=== PATIENT | male | born 1955 | race Caucasian/White ===

== ENCOUNTER 2016-06-19 09:01 | Emergency (ER) | payer MEDICARE ==
[2016-06-19 10:13] LABS: Eosinophils % (Auto) 2.6 % (0.0-4.3); Hematocrit 42.6 % (35.5-45.6); Hemoglobin 13.7 gm/dl (11.8-15.2); Mean Corpuscular HGB Conc 32 % (32-34); Mean Corpuscular Hemoglobin 27 pg (28-32); Mean Corpuscular Volume 85 fl (84-94); Platelet Count 213 K/mm3 (140-440); Red Cell Distribution Width 13.5 % (13.2-15.2); White Blood Count 4.4 K/mm3 (4.5-11.0)
[2016-06-19 10:35] LABS: Anion Gap 17 mmol/L; Blood Urea Nitrogen 14 mg/dL (9-20); Calcium 8.7 mg/dL (8.4-10.2); Carbon Dioxide 25 mmol/L (22-30); Chloride 100.2 mmol/L (98-107); Glucose 242 mg/dL (75-100); Potassium 4.4 mmol/L (3.6-5.0); Sodium 138 mmol/L (137-145)
--- NOTE | 2016-06-20 02:29 | Emergency Department Report ---
ED Chest Pain HPI - General Chief Complaint: Chest Pain Stated Complaint: CHEST PAIN Time Seen by Provider: 06/19/16 21:40 Source: patient Mode of arrival: Ambulatory Limitations: No Limitations - History of Present Illness Initial Comments: This is a 61-year-old -[place] male who presents to the emergency department with complaint of a 4 day history of intermittent chest pain to both sides of the chest. He denies any shortness of breath, nausea, vomiting, fever or diaphoresis. He has not taken anything for symptoms prior to presentation. He has a past medical history of hypertension, non-insulin depended diabetes, asthma, glaucoma. No history of OK, CVA, PE/DVT. He has not taken anything for symptoms prior to presentation. No recent travel or sick contacts at home. His primary care doctor is Dr. Luke. Severity scale (0 -10): 8 - Related Data Home Medications Medication Instructions Recorded Confirmed Last Taken Enalapril Maleate [Vasotec] 20 mg PO BID 06/20/16 06/20/16 Unknown Hydrochlorothiazide [Hctz] 12.5 mg PO QDAY 06/20/16 06/20/16 Unknown Ibuprofen [Advil 100 MG tab] 200 mg PO Q6H PRN 06/20/16 06/20/16 Unknown Lovastatin [Altoprev] 20 mg PO QPM 06/20/16 06/20/16 Unknown Metformin HCl [Glucophage] 1,000 mg PO BID 06/20/16 06/20/16 Unknown Allergies Allergy/AdvReac Type Severity Reaction Status Date / Time No Known Allergies Allergy Verified 06/19/16 09:22 DAPHNE score - Daphne Score Age > 65: (0) No Aspirin use within the Past 7 Days: (0) No 3 or more CAD Risk Factors: (0) No 2 or more Angina events in past 24 hrs: (1) Yes Known CAD with more than 50% Stenosis: (0) No Elevated Cardiac Markers: (0) No ST Deviation Greater than 0.5mm: (0) No DAPHNE Score: 1 ED Review of Systems ROS: Stated complaint: CHEST PAIN Other details as noted in HPI Comment: All other systems reviewed and negative Constitutional: denies: chills, fever Eyes: denies: eye pain, eye discharge, vision change ENT: denies: ear pain, throat pain Respiratory: denies: cough, shortness of breath, wheezing Cardiovascular: chest pain. denies: palpitations Gastrointestinal: denies: abdominal pain, nausea, diarrhea Genitourinary: denies: urgency, dysuria Musculoskeletal: denies: back pain, joint swelling, arthralgia Skin: denies: rash, lesions Neurological: denies: headache, weakness, paresthesias ED Past Medical Hx - Past Medical History Previous Medical History?: Yes Hx Hypertension: Yes Hx Diabetes: Yes Hx Asthma: Yes Additional medical history: glaucoma - Surgical History Past Surgical History?: Yes Additional Surgical History: eyes - Social History Smoking Status: Never Smoker Substance Use Type: None - Medications Home Medications: Home Medications Medication Instructions Recorded Confirmed Last Taken Type Enalapril Maleate [Vasotec] 20 mg PO BID 06/20/16 06/20/16 Unknown History Hydrochlorothiazide [Hctz] 12.5 mg PO QDAY 06/20/16 06/20/16 Unknown History Ibuprofen [Advil 100 MG tab] 200 mg PO Q6H PRN 06/20/16 06/20/16 Unknown History Lovastatin [Altoprev] 20 mg PO QPM 06/20/16 06/20/16 Unknown History Metformin HCl [Glucophage] 1,000 mg PO BID 06/20/16 06/20/16 Unknown History ED Physical Exam - General Limitations: No Limitations - Other Other exam information: GENERAL: The patient is well-developed well-nourished. HEENT: Normocephalic. Atraumatic. Extraocular motions are intact. Patient has moist mucous membranes. Pupils equal reactive to light bilaterally. NECK: Supple. Trachea is midline. CHEST/LUNGS: Clear to auscultation. There is no respiratory distress noted. Chest pain is reproducible to palpation of the chest wall. HEART/CARDIOVASCULAR: Regular. There is no tachycardia. There is no gallop rub or murmur. ABDOMEN: Abdomen is soft, nontender. Patient has normal bowel sounds. There is no abdominal distention. SKIN: There is no rash. There is no edema. There is no diaphoresis. NEURO: The patient is awake, alert, and oriented. The patient is cooperative. The patient has no focal neurologic deficits. The patient has normal speech. MUSCULOSKELETAL: There is no tenderness or deformity. There is no limitation range of motion. There is no evidence of acute injury. ED Course Vital Signs 06/19/16 06/20/1617 09:18 01:20 05:05 Temperature 98.8 F 97.9 F Pulse Rate 77 65 85 Respiratory 20 20 Rate Blood Pressure 182/99 170/98 Blood Pressure 188/94 [Left] O2 Sat by Pulse 100 97 Oximetry 06/20/16 05:56 Temperature Pulse Rate 69 Respiratory 16 Rate Blood Pressure Blood Pressure 161/91 [Left] O2 Sat by Pulse 97 Oximetry ED Medical Decision Making - Lab Data Result diagrams: 06/19/16 10:01 06/19/16 10:01 - EKG Data -: EKG Interpreted by Me EKG shows normal: sinus rhythm, axis, intervals, QRS complexes (LVH), ST-T waves (T wave inversion to inferior leads) Rate: normal - EKG Data When compared to previous EKG there are: previous EKG unavailable Interpretation: other (T wave inversion to inferior leads) - Radiology Data Radiology results: image reviewed interpreted by me: Chest x-ray did not show any acute process. Heart is normal shape and size. No effusions. No pneumothorax. No signs of pneumonia seen. - Medical Decision Making 61-year-old male presents with complaint of bilateral chest pain going on intermittent relief the past 4 days. Physical exam and is reproducible to palpation. He has normal sounding heart and lungs. EKG does not show any signs of ST elevation OK or cardiac ischemia. Patient's workup/labs include negative troponins 3 and a negative d-dimer. Patient was given a shot of Toradol and is feeling improved. He has a DAPHNE score of 1. Patient's vital signs were stable throughout his ED course. However he did have some hypertension that required a dose of Catapres, but it came down to a more reasonable level. The patient will be given a referral for cardiology and encouraged to follow-up with his primary care doctor. He will return to the ER with any worsening of his symptoms or any acute distress. - Differential Diagnosis OK, PE, costochondritis, pneumonia, muscle spasm Critical Care Time: No Critical care attestation.: If time is entered above; I have spent that time in minutes in the direct care of this critically ill patient, excluding procedure time. ED Disposition Clinical Impression: Costochondritis Hypertension Qualifiers: Hypertension type: essential hypertension Qualified Code(s): I10 - Essential ( primary) hypertension Chest pain Qualifiers: Chest pain type: unspecified Qualified Code(s): R07.9 - Chest pain, unspecified Disposition: OP ADMITTED IP TO THIS HOSP Is pt being admited?: Yes Condition: Stable Instructions: Hypertension (ED), Chest Pain (ED), Costochondritis (ED) Additional Instructions: Please follow-up with your primary care doctor in the next few days. I have also given you a referral for a local smocker, Dr. Shanon Belle, to follow-up regarding your chest pain and for a possible outpatient stress test. Return to the emergency department with any worsening of your symptoms, intractable chest pain, respiratory distress, or any acute distress. Referrals: PRIMARY CARE, [Primary Care Provider] - 3-5 Days SHANON BELLE MD [Staff Physician] - 3-5 Days Time of Disposition: 06:20
[2016-06-20] MEDS ORDERED: TORADOL IM ONE (03:09)
[2016-06-20] MEDS ORDERED: CATAPRES PO ONE (04:41)
[2016-06-20 07:04] VITALS: BP 157/88
--- NOTE | 2016-06-20 08:21 | XRay Report ---
AP chest x-ray. Findings: The heart is mildly enlarged with normal pulmonary vascularity. The lungs are clear. There is no pleural fluid. Impression: Mild Cardiomegaly with no acute findings.
== END 2016-06-20 06:40 | disposition admitted as inpatient to this hospital (09) ==
LOC: ED 09:01
DX: M94.0 Chondrocostal junction syndrome [Tietze] (principal); I10 Essential (primary) hypertension; E11.9 Type 2 diabetes mellitus without complications; J45.909 Unspecified asthma, uncomplicated
CPT/HCPCS: 36415; 71010; 80048; 84484; 85025; 85379; 93005; 93010; 96372; 99285; J1885

== ENCOUNTER 2021-03-17 11:19 | Observation (INO) | payer MEDICARE ==
--- NOTE | 2021-03-17 11:34 | Emergency Department Report ---
ED Chest Pain HPI - General Chief Complaint: Chest Pain Stated Complaint: chest pain Time Seen by Provider: 03/17/21 11:31 - History of Present Illness Initial Comments: Patient is a 65-year-old male who presents with chest pain and abnormal smell. He states that this is been going on for last few days it has been going on since Sunday his chest pain is a 6 out of 10 located in the left side of his chest he states nothing makes it better nothing makes it worse. He states that he has been feeling weak and fatigued. He is concerned about the smell and the chest pain. He states that things do not taste different and he is got his Covid vaccines. - Related Data Home Medications Medication Instructions Recorded Confirmed Last Taken Enalapril Maleate [Vasotec] 20 mg PO BID 06/20/16 06/20/16 Unknown Ibuprofen [Advil 100 MG tab] 200 mg PO Q6H PRN 06/20/16 06/20/16 Unknown Lovastatin [Altoprev] 20 mg PO QPM 06/20/16 06/20/16 Unknown Metformin HCl [Glucophage] 1,000 mg PO BID 06/20/16 06/20/16 Unknown hydroCHLOROthiazide [Hctz] 12.5 mg PO QDAY 06/20/16 06/20/16 Unknown Allergies Allergy/AdvReac Type Severity Reaction Status Date / Time No Known Allergies Allergy Verified 06/19/16 09:22 Heart Score - HEART Score History: Moderately suspicious EKG: Normal Age: 45-65 Risk factors: > 3 risk factors or hx of atherosclerotic disease Troponin: < normal limit HEART Score: 4 - EKG Read Time Time EKG Completed: 11:51 EKG Read Time: 11:53 ED Review of Systems ROS: Stated complaint: chest pain Other details as noted in HPI Constitutional: denies: chills, fever Eyes: denies: eye pain, eye discharge, vision change ENT: denies: ear pain, throat pain Respiratory: denies: cough, shortness of breath, wheezing Cardiovascular: chest pain. denies: palpitations Endocrine: no symptoms reported Gastrointestinal: denies: abdominal pain, nausea, diarrhea Genitourinary: denies: urgency, dysuria Musculoskeletal: denies: back pain, joint swelling, arthralgia Skin: denies: rash, lesions Neurological: denies: headache, weakness, paresthesias Psychiatric: denies: anxiety, depression Hematological/Lymphatic: denies: easy bleeding, easy bruising ED Past Medical Hx - Past Medical History Hx Hypertension: Yes Hx Diabetes: Yes Hx Asthma: Yes Additional medical history: glaucoma - Surgical History Additional Surgical History: eyes - Social History Smoking Status: Never Smoker Substance Use Type: None - Medications Home Medications: Home Medications Medication Instructions Recorded Confirmed Last Taken Type Enalapril Maleate [Vasotec] 20 mg PO BID 06/20/16 06/20/16 Unknown History Ibuprofen [Advil 100 MG tab] 200 mg PO Q6H PRN 06/20/16 06/20/16 Unknown History Lovastatin [Altoprev] 20 mg PO QPM 06/20/16 06/20/16 Unknown History Metformin HCl [Glucophage] 1,000 mg PO BID 06/20/16 06/20/16 Unknown History hydroCHLOROthiazide [Hctz] 12.5 mg PO QDAY 06/20/16 06/20/16 Unknown History ED Physical Exam - General General appearance: alert, in no apparent distress - Head Head exam: Present: atraumatic, normocephalic - Eye Eye exam: Present: normal appearance - ENT ENT exam: Present: mucous membranes moist - Neck Neck exam: Present: normal inspection - Respiratory Respiratory exam: Present: normal lung sounds bilaterally. Absent: respiratory distress - Cardiovascular Cardiovascular Exam: Present: regular rate, normal rhythm. Absent: systolic murmur, diastolic murmur, rubs, gallop - GI/Abdominal GI/Abdominal exam: Present: soft, normal bowel sounds - Rectal Rectal exam: Present: deferred - Extremities Exam Extremities exam: Present: normal inspection - Back Exam Back exam: Present: normal inspection - Neurological Exam Neurological exam: Present: alert, oriented X3 - Psychiatric Psychiatric exam: Present: normal affect, normal mood - Skin Skin exam: Present: warm, dry, intact, normal color. Absent: rash ED Course Vital Signs 03/17/21 03/17/21 03/17/21 11:28 11:31 11:45 Pulse Rate 71 73 Respiratory 16 20 Rate Blood Pressure 183/128 183/128 O2 Sat by Pulse 100 99 100 Oximetry 03/17/21 03/17/21 03/17/21 12:00 12:06 12:15 Pulse Rate 68 68 Respiratory 20 20 Rate Blood Pressure 139/75 139/75 O2 Sat by Pulse 99 100 99 Oximetry 03/17/21 03/17/21 03/17/21 12:30 12:45 13:01 Pulse Rate 67 66 Respiratory 17 17 Rate Blood Pressure 118/70 118/70 118/70 O2 Sat by Pulse 98 99 99 Oximetry 03/17/21 13:15 Pulse Rate 62 Respiratory 19 Rate Blood Pressure 118/70 O2 Sat by Pulse 99 Oximetry - Reevaluation(s) Reevaluation #1: 03/17/21 13:44 Pt's chest pain is better but he still is concerned about his sense of smell. DAPHNE score - Daphne Score Age > 65: (0) No Aspirin use within the Past 7 Days: (0) No 3 or more CAD Risk Factors: (0) No 2 or more Angina events in past 24 hrs: (1) Yes Known CAD with more than 50% Stenosis: (0) No Elevated Cardiac Markers: (0) No ST Deviation Greater than 0.5mm: (0) No DAPHNE Score: 1 ED Medical Decision Making - Lab Data Result diagrams: 03/17/21 11:48 03/17/21 11:48 Lab Results 03/17/21 03/17/21 Range/Units 11:48 11:48 WBC 5.3 (4.5-11.0) K/mm3 RBC 4.76 (3.65-5.03) M/mm3 Hgb 13.2 (11.8-15.2) gm/dl Hct 42.3 (35.5-45.6) % MCV 89 (84-94) fl MCH 28 (28-32) pg MCHC 31 L (32-34) % RDW 14.0 (13.2-15.2) % Plt Count 222 (140-440) K/mm3 Lymph % (Auto) 25.3 (13.4-35.0) % [place] % (Auto) 7.1 (0.0-7.3) % Eos % (Auto) 1.0 (0.0-4.3) % Baso % (Auto) 0.4 (0.0-1.8) % Lymph # (Auto) 1.3 (1.2-5.4) K/mm3 [place] # (Auto) 0.4 (0.0-0.8) K/mm3 Eos # (Auto) 0.1 (0.0-0.4) K/mm3 Baso # (Auto) 0.0 (0.0-0.1) K/mm3 Seg Neutrophils % 66.2 (40.0-70.0) % Seg Neutrophils # 3.5 (1.8-7.7) K/mm3 Sodium 142 (137-145) mmol/L Potassium 3.7 (3.6-5.0) mmol/L Chloride 108.8 H (98-107) mmol/L Carbon Dioxide 20 L (22-30) mmol/L Anion Gap 17 mmol/L BUN 12 (9-20) mg/dL Creatinine 0.9 (0.8-1.3) mg/dL Estimated GFR > 60 ml/min BUN/Creatinine Ratio 13 % Glucose 163 H (75-100) mg/dL Calcium 8.9 (8.4-10.2) mg/dL Total Bilirubin 0.50 (0.1-1.2) mg/dL AST 14 (5-40) units/L ALT 11 (7-56) units/L Alkaline Phosphatase 64 (35-129) units/L Troponin T < 0.010 (0.00-0.029) ng/mL Total Protein 7.6 (6.3-8.2) g/dL Albumin 4.2 (3.9-5) g/dL Albumin/Globulin Ratio 1.2 % - EKG Data -: EKG Interpreted by Me - EKG Data 03/17/21 13:40 EKG time 11:55 rate 67 atrial sensed ventricular paced rhythm. - Radiology Data Radiology results: report reviewed, image reviewed cxr: no acute cardiopulmonary process - Medical Decision Making Cdx:NSTEMI Ddx: COVID, Unstable angina I will get cbc, bmp, troponin and ekg Critical care attestation.: If time is entered above; I have spent that time in minutes in the direct care of this critically ill patient, excluding procedure time. ED Disposition Clinical Impression: Chest pain Qualifiers: Chest pain type: unspecified Qualified Code(s): R07.9 - Chest pain, unspecified Disposition: 09 ADMITTED INPATIENT Is pt being admited?: Yes Does the pt Need Aspirin: No Condition: Stable Instructions: Nonspecific Chest Pain, Adult
[2021-03-17] MEDS ORDERED: MORPHINE 4 MG/1 ML INJ IV ONE (11:35)
[2021-03-17] MEDS ORDERED: ASPIRIN 81 MG TAB CHEW PO ONE (11:36)
[2021-03-17] MEDS ORDERED: NITROGLYCERIN 2% OINT 1 GM TP ONE (11:46)
[2021-03-17 13:06] LABS: Basophils % (Auto) 0.4 % (0.0-1.8); Eosinophils # (Auto) 0.1 K/mm3 (0.0-0.4); Hematocrit 42.3 % (35.5-45.6); Hemoglobin 13.2 gm/dl (11.8-15.2); Lymphocytes # (Auto) 1.3 K/mm3 (1.2-5.4); Lymphocytes % (Auto) 25.3 % (13.4-35.0); Mean Corpuscular HGB Conc 31 % (32-34); Mean Corpuscular Volume 89 fl (84-94); Monocytes # (Auto) 0.4 K/mm3 (0.0-0.8); Monocytes % (Auto) 7.1 % (0.0-7.3); Platelet Count 222 K/mm3 (140-440); Red Blood Count 4.76 M/mm3 (3.65-5.03)
--- NOTE | 2021-03-17 13:11 | XRay Report ---
CHEST 2 VIEWS INDICATION: chest pain. COMPARISON: 06/20/2016 FINDINGS: SUPPORT DEVICES: Cardiac device placement with leads projecting over the right atrium, right ventricl e, and coronary sinus. HEART: Within normal limits. LUNGS/PLEURA: No acute air space or interstitial disease. No pneumothorax. ADDITIONAL FINDINGS: None. IMPRESSION: 1. Satisfactory device placement with no complication. Signer Name: Rudi Mosher MD Signed: 03/17/2021 1:06 PM Workstation Name: [id number]
[2021-03-17 13:16] LABS: Alanine Aminotransferase 11 units/L (7-56); Albumin 4.2 g/dL (3.9-5); BUN/Creatinine Ratio 13; Blood Urea Nitrogen 12 mg/dL (9-20); Calcium 8.9 mg/dL (8.4-10.2); Hemolysis Index 11
--- NOTE | 2021-03-17 18:57 | History and Physical Report ---
History of Present Illness Date of examination: 03/17/21 Date of admission: 03/17/21 13:45 Chief complaint: Chest pain for 1 week. History of present illness: 65-year-old male with history of hypertension, type 2 diabetes and asthma comes in for left-sided chest pain of 1 week duration. Chest pain is intermittent in nature. Left precordial and retrosternal. No radiation. No diaphoresis. No nausea no vomiting. Chest pain is about 6 on a scale of 1-10. No exacerbating or precipitating factors. No shortness of breath. Patient also has altered smell and but no loss of taste. Patient got his Covid vaccination. Patient states he is feeling weak and fatigued. Patient virus Covid vaccination. Heart Score - HEART Score History: Moderately suspicious EKG: Normal Age: 45-65 Risk factors: > 3 risk factors or hx of atherosclerotic disease Troponin: < normal limit HEART Score: 4 - Past Medical History --Hypertension: Yes --Diabetes: Yes --Asthma: Yes --Additional medical history: glaucoma --Pacemaker - Surgical History Additional Surgical History: eyes - Social History --Smoking Status: Never Smoker --Substance Use Type: None - Medications Home Medications: Home Medications Medication Instructions Recorded Confirmed Last Taken Type Enalapril Maleate [Vasotec] 20 mg PO BID 06/20/16 06/20/16 Unknown History Ibuprofen [Advil 100 MG tab] 200 mg PO Q6H PRN 06/20/16 06/20/16 Unknown History Lovastatin [Altoprev] 20 mg PO QPM 06/20/16 06/20/16 Unknown History Metformin HCl [Glucophage] 1,000 mg PO BID 06/20/16 06/20/16 Unknown History hydroCHLOROthiazide [Hctz] 12.5 mg PO QDAY 06/20/16 06/20/16 Unknown History Review of Systems ROS: Stated complaint: chest pain Other details as noted in HPI Constitutional: denies: chills, fever Eyes: denies: eye pain, eye discharge, vision change ENT: denies: ear pain, throat pain Respiratory: denies: cough, shortness of breath, wheezing Cardiovascular: chest pain. denies: palpitations Endocrine: no symptoms reported Gastrointestinal: denies: abdominal pain, nausea, diarrhea Genitourinary: denies: urgency, dysuria Musculoskeletal: denies: back pain, joint swelling, arthralgia Skin: denies: rash, lesions Neurological: denies: headache, weakness, paresthesias Psychiatric: denies: anxiety, depression Hematological/Lymphatic: denies: easy bleeding, easy bruising Medications and Allergies Allergies Allergy/AdvReac Type Severity Reaction Status Date / Time No Known Allergies Allergy Verified 06/19/16 09:22 Home Medications Medication Instructions Recorded Confirmed Last Taken Type Enalapril Maleate [Vasotec] 20 mg PO BID 06/20/16 06/20/16 Unknown History Ibuprofen [Advil 100 MG tab] 200 mg PO Q6H PRN 06/20/16 06/20/16 Unknown History Lovastatin [Altoprev] 20 mg PO QPM 06/20/16 06/20/16 Unknown History Metformin HCl [Glucophage] 1,000 mg PO BID 06/20/16 06/20/16 Unknown History hydroCHLOROthiazide [Hctz] 12.5 mg PO QDAY 06/20/16 06/20/16 Unknown History Exam - Constitutional Vitals: Temp Pulse Resp BP Pulse Ox 98.6 F 63 22 119/70 99 03/17/21 18:48 03/17/21 18:48 03/17/21 18:48 03/17/21 18:48 03/17/21 18:48 General appearance: Present: no acute distress, well-nourished - EENT Eyes: Present: PERRL ENT: hearing intact, clear oral mucosa - Neck Neck: Present: supple, normal ROM - Respiratory Respiratory effort: normal Respiratory: bilateral: CTA - Cardiovascular Heart rate: 78 Rhythm: regular Heart Sounds: Present: S1 & S2. Absent: rub, click - Extremities Extremities: no ischemia, pulses intact, pulses symmetrical, No edema Peripheral Pulses: within normal limits - Abdominal General gastrointestinal: Present: soft, non-tender, non-distended, normal bowel sounds Male genitourinary: Present: normal - Rectal Rectal Exam: deferred - Integumentary Integumentary: Present: clear, warm, dry - Musculoskeletal Musculoskeletal: gait normal, strength equal bilaterally - Psychiatric Psychiatric: appropriate mood/affect, intact judgment & insight - Neurologic Neurologic: CNII-XII intact, moves all extremities - Allied Health Allied health notes reviewed: nursing HEART Score - HEART Score EKG: Normal Age: 45-65 Risk factors: > 3 risk factors or hx of atherosclerotic disease Troponin: Troponin T < 0.010 ng/mL (0.00-0.029) 03/17/21 11:48 Troponin: < normal limit Results - Labs CBC & Chem 7: 03/18/21 03:23 03/18/21 03:23 Labs: Laboratory Last Values WBC 5.3 K/mm3 (4.5-11.0) 03/17/21 11:48 RBC 4.76 M/mm3 (3.65-5.03) 03/17/21 11:48 Hgb 13.2 gm/dl (11.8-15.2) 03/17/21 11:48 Hct 42.3 % (35.5-45.6) 03/17/21 11:48 MCV 89 fl (84-94) 03/17/21 11:48 MCH 28 pg (28-32) 03/17/21 11:48 MCHC 31 % (32-34) L 03/17/21 11:48 RDW 14.0 % (13.2-15.2) 03/17/21 11:48 Plt Count 222 K/mm3 (140-440) 03/17/21 11:48 Lymph % (Auto) 25.3 % (13.4-35.0) 03/17/21 11:48 [place] % (Auto) 7.1 % (0.0-7.3) 03/17/21 11:48 Eos % (Auto) 1.0 % (0.0-4.3) 03/17/21 11:48 Baso % (Auto) 0.4 % (0.0-1.8) 03/17/21 11:48 Lymph # (Auto) 1.3 K/mm3 (1.2-5.4) 03/17/21 11:48 [place] # (Auto) 0.4 K/mm3 (0.0-0.8) 03/17/21 11:48 Eos # (Auto) 0.1 K/mm3 (0.0-0.4) 03/17/21 11:48 Baso # (Auto) 0.0 K/mm3 (0.0-0.1) 03/17/21 11:48 Seg Neutrophils % 66.2 % (40.0-70.0) 03/17/21 11:48 Seg Neutrophils # 3.5 K/mm3 (1.8-7.7) 03/17/21 11:48 Sodium 142 mmol/L (137-145) 03/17/21 11:48 Potassium 3.7 mmol/L (3.6-5.0) 03/17/21 11:48 Chloride 108.8 mmol/L (98-107) H 03/17/21 11:48 Carbon Dioxide 20 mmol/L (22-30) L 03/17/21 11:48 Anion Gap 17 mmol/L 03/17/21 11:48 BUN 12 mg/dL (9-20) 03/17/21 11:48 Creatinine 0.9 mg/dL (0.8-1.3) 03/17/21 11:48 Estimated GFR > 60 ml/min 03/17/21 11:48 BUN/Creatinine Ratio 13 % 03/17/21 11:48 Glucose 163 mg/dL (75-100) H 03/17/21 11:48 POC Glucose 91 mg/dL (70-105) 03/17/21 18:28 Calcium 8.9 mg/dL (8.4-10.2) 03/17/21 11:48 Total Bilirubin 0.50 mg/dL (0.1-1.2) 03/17/21 11:48 AST 14 units/L (5-40) 03/17/21 11:48 ALT 11 units/L (7-56) 03/17/21 11:48 Alkaline Phosphatase 64 units/L (35-129) 03/17/21 11:48 Troponin T < 0.010 ng/mL (0.00-0.029) 03/17/21 11:48 Total Protein 7.6 g/dL (6.3-8.2) 03/17/21 11:48 Albumin 4.2 g/dL (3.9-5) 03/17/21 11:48 Albumin/Globulin Ratio 1.2 % 03/17/21 11:48 Short CBC 03/17/21 03/18/21 Range/Units 11:48 03:23 WBC 5.3 5.4 (4.5-11.0) K/mm3 Hgb 13.2 12.4 (11.8-15.2) gm/dl Hct 42.3 40.0 (35.5-45.6) % Plt Count 222 197 (140-440) K/mm3 BMP 03/17/21 03/18/21 11:48 03:23 Sodium 142 142 Potassium 3.7 4.0 Chloride 108.8 H 109.6 H Carbon Dioxide 20 L 20 L BUN 12 12 Creatinine 0.9 0.8 Glucose 163 H 101 H Calcium 8.9 8.6 Cardiac Enzymes 03/17/21 03/17/21 03/18/21 Range/Units 11:48 19:44 03:23 Troponin T < 0.010 < 0.010 < 0.010 (0.00-0.029) ng/mL Liver Function 03/17/21 03/18/21 Range/Units 11:48 03:23 Total Bilirubin 0.50 0.50 (0.1-1.2) mg/dL AST 14 14 (5-40) units/L ALT 11 10 (7-56) units/L Alkaline Phosphatase 64 53 (35-129) units/L Albumin 4.2 3.6 L (3.9-5) g/dL - Imaging and Cardiology EKG: report reviewed (Sinus rhythm no acute ST-T wave changes) Imaging and Cardiology: Chest x-ray Cardiac device placement with leads projecting over the right atrium right ventricle and coronary sinus. Otherwise no acute findings. Assessment and Plan Advance Directives: Yes (Full Code) VTE prophylaxis?: Chemical Plan of care discussed with patient/family: Yes - Patient Problems (1) Acute coronary syndrome Current Visit: Yes Status: Acute Plan to address problem: Serial troponins Lexiscan in the morning (2) Hypertension Current Visit: Yes Status: Chronic Qualifiers: Hypertension type: primary hypertension Qualified Code(s): I10 - Essential (primary) hypertension Plan to address problem: Continue antihypertensives and adjust medications (3) Hyperlipidemia Current Visit: Yes Status: Chronic Qualifiers: Hyperlipidemia type: mixed hyperlipidemia Qualified Code(s): E78.2 - Mixed hyperlipidemia Plan to address problem: Continue statins (4) T2DM (type 2 diabetes mellitus) Current Visit: Yes Status: Chronic Qualifiers: Diabetes mellitus 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 because of altered smell (6) DVT prophylaxis Current Visit: Yes Status: Acute Plan to address problem: On anticoagulation GI prophylaxis
[2021-03-17] MEDS ORDERED: METOCLOPRAMIDE 10 MG/2 ML INJ IV PRN (19:11)
[2021-03-17] MEDS ORDERED: ACETAMINOPHEN 325 MG TAB PO PRN (19:11)
[2021-03-17] MEDS ORDERED: oxyCODONE /ACETAMINOPHEN 5-325MG TAB PO PRN (19:11)
[2021-03-17] MEDS ORDERED: HYDROmorphone 1 MG/1 ML INJ IV PRN (19:11)
[2021-03-17] MEDS ORDERED: ONDANSETRON 4 MG/2 ML INJ IV PRN (19:11)
[2021-03-17] MEDS: hydroCHLOROthiazide 12.5 MG CAP PO SCH (20:00)
[2021-03-17] MEDS ORDERED: SODIUM CHLORIDE 0.9% 1000 ML 1,000 ML IV SCH (20:15)
[2021-03-17] MEDS ORDERED: NON-FORMULARY EACH (Metformin Hcl [Glucophage] 1,000 MG Tablet) PO SCH (22:00)
[2021-03-17] MEDS: metFORMIN 500 MG TAB PO SCH (22:00)
[2021-03-17] MEDS: INSULIN LISPRO 100 UNIT/ML SUB-Q SCH (22:00)
[2021-03-17] MEDS: FAMOTIDINE 20 MG/2 ML INJ IV SCH (22:00)
[2021-03-17] MEDS ORDERED: NON-FORMULARY EACH (Enalapril Maleate [Vasotec] 20 MG Tablet) PO SCH (22:00)
[2021-03-17] MEDS: HEPARIN 5,000 UNIT/1 ML VIAL SUB-Q SCH (22:00)
[2021-03-17] MEDS: LISINOPRIL 20 MG TAB PO SCH (22:00)
[2021-03-17] MEDS ORDERED: PRAVASTATIN 20 MG TAB PO SCH (22:00)
[2021-03-18 04:45] LABS: Basophils % (Auto) 0.6 % (0.0-1.8); Eosinophils # (Auto) 0.1 K/mm3 (0.0-0.4); Eosinophils % (Auto) 1.2 % (0.0-4.3); Hemoglobin 12.4 gm/dl (11.8-15.2); Lymphocytes # (Auto) 1.8 K/mm3 (1.2-5.4); Lymphocytes % (Auto) 32.8 % (13.4-35.0); Mean Corpuscular HGB Conc 31 % (32-34); Mean Corpuscular Volume 90 fl (84-94); Monocytes # (Auto) 0.6 K/mm3 (0.0-0.8); Monocytes % (Auto) 10.3 % (0.0-7.3); Platelet Count 197 K/mm3 (140-440); Red Blood Count 4.46 M/mm3 (3.65-5.03)
[2021-03-18 05:09] LABS: Alanine Aminotransferase 10 units/L (7-56); Albumin 3.6 g/dL (3.9-5); BUN/Creatinine Ratio 15; Blood Urea Nitrogen 12 mg/dL (9-20); Calcium 8.6 mg/dL (8.4-10.2); Hemolysis Index 6
--- NOTE | 2021-03-18 08:51 | Discharge Summary ---
Providers - Providers Date of Admission: 03/17/21 13:45 Attending physician: YUMIKO REED MD Primary care physician: PERIANESTHESIA RN Hospitalization Reason for admission: Chest pain Condition: Stable Hospital course: 65-year-old male with history of hypertension, type 2 diabetes and asthma comes in for left-sided chest pain of 1 week duration. Chest pain is intermittent in nature. Left precordial and retrosternal. No radiation. No diaphoresis. No nausea no vomiting. Chest pain is about 6 on a scale of 1-10. No exacerbating or precipitating factors. No shortness of breath. Patient also has altered smell and but no loss of taste. Patient got his Covid vaccination. Patient states he is feeling weak and fatigued. Patient virus Covid vaccination. 03/18: Patient seen and examined this morning ambulating no shortness of breath blood pressure has improved he says that he is chest pain has also improved it is reproducible. He denies any dizziness nausea vomiting or diarrhea. He is awaiting a Covid test Considering the reproducible nature of the chest pain and the fact that were unable to do a stress test this weekend recommended outpatient evaluation by cardiology I discussed with the patient no strenuous activity until this is done nevertheless I will also rule him out for pulmonary embolism and if that is negative he will be discharged today. I have also started him on aspirin Chest x-ray Cardiac device placement with leads projecting over the right atrium right ventricle and coronary sinus. Otherwise no acute findings. 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 because of altered smell (6) morbid obesity (7) metabolic acidosis Final Discharge Diagnosis (Prints w/discharge instructions): Atypical chest pain secondary to costochondritis Time spent for discharge: 35 minutes Core Measure Documentation - Palliative Care Palliative Care/ Comfort Measures: Not Applicable - Core Measures Any of the following diagnoses?: none Exam - Physical Exam Narrative exam: VITAL SIGNS: Reviewed. GENERAL: The patient appears normally developed, obese, vital signs as documented. HEAD: No signs of head trauma. EYES: Pupils are equal. Legally blind in the right eye extraocular motions intact. EARS: Hearing grossly intact. MOUTH: Oropharynx is normal. NECK: No adenopathy, no JVD. CHEST: Chest with clear breath sounds bilaterally. No wheezes, rales, or rhonchi. CARDIAC: Regular rate and rhythm. S1 and S2, without murmurs, gallops, or r ubs. VASCULAR: No Edema. Peripheral pulses normal and equal in all extremities. ABDOMEN: Soft, non tender and non distended. No rebound or guarding, and no masses palpated. Bowel Sounds normal. MUSCULOSKELETAL: Good range of motion of all major joints. Extremities without clubbing, cyanosis or edema. NEUROLOGIC EXAM: Alert and oriented x 3 No focal sensory or strength deficits. Speech normal. Follows commands. PSYCHIATRIC: Mood normal. SKIN: detail exam as documented in skin assessment - Constitutional Vitals: Temp Pulse Resp BP Pulse Ox 98.0 F 60 18 111/63 98 03/18/21 05:03 03/18/21 05:03 03/18/21 05:03 03/18/21 05:03 03/18/21 08:43 Plan Activity: advance as tolerated (no streanous activity till cleared by cardiology), fall precautions Diet: low fat Special Instructions: record daily weights, record daily BP diary Follow up with: PRIMARY CARE, [Primary Care Provider] - 3-5 Days KRYSTINA RICHTER MD [Staff Physician] - 7 Days Prescriptions: Aspirin [Adult Aspirin] 81 mg PO DAILY #30 tablet.
--- NOTE | 2021-03-18 09:03 | Electrocardiograph Report ---
[facility] Test Date: 2021-03-17 Test Time: 11:45:58 Pat Name: SHIVAM HONG Department: Room: A366 Gender: M [employer] House Supervisor: FATOU : 1955 Requested By: DARRELL AVALOS Order Number: [id number] Reading MD: Enmanuel Woods Measurements Intervals [place] Rate: 67 P: 78 VT: 184 QRS: -11 QRSD: 143 T: 68 QT: 402 QTc: 425 Interpretive Statements Atrial-sensed ventricular-paced rhythm No previous ECG available for comparison Electronically Signed On 03-18-2021 9:03:10 EST by Enmanuel Woods
[2021-03-18] MEDS: INSULIN LISPRO 100 UNIT/ML SUB-Q SCH ×2 (09:22→11:43)
[2021-03-18] MEDS: hydroCHLOROthiazide 12.5 MG CAP PO SCH ×2 (09:23→09:31)
[2021-03-18] MEDS: FAMOTIDINE 20 MG/2 ML INJ IV SCH (09:24)
[2021-03-18] MEDS: metFORMIN 500 MG TAB PO SCH ×2 (09:24→09:31)
[2021-03-18] MEDS: HEPARIN 5,000 UNIT/1 ML VIAL SUB-Q SCH (09:24)
[2021-03-18] MEDS: LISINOPRIL 20 MG TAB PO SCH (09:24)
[2021-03-18 11:22] VITALS: BP 128/65
--- NOTE | 2021-03-18 14:12 | Cat Scan Report ---
. CTA chest with contrast INDICATION : pulmonary embolism OMNI 350 100 ML. TECHNIQUE: Axial imaging performed through the chest, with contrast bolus timing set to maximize opa cification of the pulmonary arteries. 3-plane MIP reformatted images were obtained. All CT scans at this location are performed using CT dose reduction for ALARA by means of automated exposure control. 100 mL of intravenous contrast administered. COMPARISON: None FINDINGS: Bolus/PTE: Contrast bolus timing is adequate but there is mild respiratory motion in the lung bases which slightly limits the exam in the subsegmental distribution. No filling defect is present to sug gest PTE. Mediastinum: Heart and great vessels appear normal. No pathologic mediastinal adenopathy. Lungs: Lungs are clear. There is a trace left-sided pleural effusion. Upper abdomen: Limited imaging of the upper abdomen shows nothing acute. Bones: Degenerative changes in the spine with nothing acute. IMPRESSION: 1. Negative for PTE. 2. Trace left-sided pleural effusion. Otherwise clear lungs. Signer Name: Rudi Mosher MD Signed: 03/18/2021 2:08 PM Workstation Name: [id number]
[2021-03-18] MEDS ORDERED: NON-FORMULARY EACH (Lovastatin [Altoprev] 20 MG Tab.Er.24h) PO SCH (18:00)
== END 2021-03-18 16:28 | disposition home or self-care (01) ==
LOC: ED 11:19 → INTOOBSV 13:45 → 3A 13:45
PROVIDERS: ADMIT Internal Medicine; ATTEND Internal Medicine
DX: I24.9 Acute ischemic heart disease, unspecified (principal); Z20.822 Contact with and (suspected) exposure to COVID-19; R07.89 Other chest pain; I10 Essential (primary) hypertension; J45.909 Unspecified asthma, uncomplicated; E11.9 Type 2 diabetes mellitus without complications; E66.01 Morbid (severe) obesity due to excess calories; E78.5 Hyperlipidemia, unspecified; M94.0 Chondrocostal junction syndrome [Tietze]; H40.9 Unspecified glaucoma; Z95.0 Presence of cardiac pacemaker; Z79.84 Long term (current) use of oral hypoglycemic drugs
CPT/HCPCS: 36415; 71046; 71275; 80053; 82962; 83036; 84484; 85025; 85379; 93005; 94660; 96372; 96374; 96375; 96376; 99285; G0378; J1644; J2270; J3490; Q9967; U0003